=== PATIENT | female | born 1990 | race Caucasian/White ===

== ENCOUNTER → 2022-04-28 | Outpatient (RCR) | payer OTHER | LOC: M PT 07:11 | PROVIDERS: ATTEND Nurse Practitioner Family | DX: M54.50 Low back pain, unspecified (principal) ==

== ENCOUNTER 2022-05-20 10:00 | Outpatient (RCR) | payer OTHER | END 2022-05-28 | LOC: M PT 10:00 | PROVIDERS: ATTEND Nurse Practitioner Family | DX: M54.50 Low back pain, unspecified (principal) ==